=== PATIENT | female | born 1950 | race Caucasian/White ===

== ENCOUNTER 2022-12-04 08:45 | Outpatient (CLI) | payer MEDICARE, MEDICAID ==
[~2022-12-04] VITALS: Ht 165.1 cm; Wt 59.0 kg
[2022-12-04] VITALS (9 sets, daily range): BP systolic 160–181; BP diastolic 78–86
[~2022-12-04 08:45] MED LIST: ACET-2119 PO; ALPR-623 PO; AMLO2.5T2 PO; IBUP-24 PO; LISI20TA28 PO; PER10325T PO
[2022-12-04] MEDS ORDERED: aminophylline 250mg/10ml inj. IV PRN (09:25)
[2022-12-04] MEDS ORDERED: regadenoson 0.4mg/5ml syringe IV ONE (09:25)
[2022-12-04] MEDS ORDERED: atropine 0.1mg/ml 10ml syringe IV PRN (09:25)
[2022-12-04] MEDS ORDERED: metoprolol tartrate 1mg/ml inj IV PRN (09:25)
[2022-12-04] MEDS ORDERED: nitroGLYCERIN 0.4mg SUBLingual tab SL PRN (09:25)
[2022-12-04] MEDS ORDERED: normal saline 500ml IV soln 500 ML IV ONE (09:25)
== END 2022-12-04 23:59 | disposition home or self-care (01) ==
LOC: RAD 08:45
PROVIDERS: ATTEND Internal Medicine Cardiovascular Disease
DX: Z01.810 Encounter for preprocedural cardiovascular examination (principal); R00.2 Palpitations
CPT/HCPCS: 78452; 93017; A9500; J2785; J7040; J0280

== ENCOUNTER 2023-03-25 10:35 | Emergency (ER) | payer MEDICARE, MEDICAID ==
[~2023-03-25] VITALS: Ht 165.1 cm; Wt 61.4 kg
[2023-03-25 10:45] VITALS: BP 211/98
[2023-03-25 10:47] LABS: BASOPHILS # (AUTO) 0.1 X10'3 (0-0.2); BASOPHILS % (AUTO) 0.7 % (0-1); EOSINOPHILS # (AUTO) 0.4 X10'3 (0-0.9); EOSINOPHILS % (AUTO) 5.6 % (0-6); HEMATOCRIT 35.9 % (35.0-45.0); LYMPHOCYTES # (AUTO) 1.2 X10'3 (1.1-4.8); LYMPHOCYTES % (AUTO) 17.6 % (21-51); MEAN CORPUSCULAR HEMOGLOBIN 30.6 PG (27.0-31.0); MEAN CORPUSCULAR HGB CONC 33.5 g/dL (33.0-36.5); MEAN CORPUSCULAR VOLUME 91.3 FL (78-98); MEAN PLATELET VOLUME 6.3 FL (7.4-10.4); MONOCYTES # (AUTO) 0.6 X10'3 (0-0.9); MONOCYTES % (AUTO) 8.8 % (2-12); NEUTROPHILS # (AUTO) 4.7 X10'3 (1.8-7.7); NEUTROPHILS % (AUTO) 67.3 % (42-75); PLATELET COUNT 269 X10'3 (140-440); RED BLOOD COUNT 3.93 X10'6 (4.20-5.60); RED CELL DISTRIBUTION WIDTH 12.4 % (11.5-14.5)
[2023-03-25 11:14] LABS: ALANINE AMINOTRANSFERASE 27 U/L (12-78); ALBUMIN 4.1 G/DL (3.4-5.0); ALBUMIN/GLOBULIN RATIO 1.3 (1.1-1.5); ALKALINE PHOSPHATASE 61 IU/L (46-116); ANION GAP 7 (8-16); ASPARTATE AMINO TRANSFERASE 21 U/L (10-37); BILIRUBIN,TOTAL 0.4 MG/DL (0.1-1.0); BLOOD UREA NITROGEN 13 MG/DL (7-18); BUN/CREATININE RATIO 16.7 (10.0-20.0); CALCIUM 9.3 MG/DL (8.5-10.1); CHLORIDE 104 MMOL/L (99-107); CREATININE 0.78 MG/DL (0.40-0.90); GLUCOSE 95 MG/DL (70-104); POTASSIUM 3.9 MMOL/L (3.5-5.1); SODIUM 138 MMOL/L (135-145); TOTAL CARBON DIOXIDE 27.5 MMOL/L (24-32); TOTAL PROTEIN 7.3 G/DL (6.4-8.2); eGFR 73 ML/MIN
[2023-03-25] MEDS ORDERED: LIDOcaine 5% patch TP STA (13:41)
== END 2023-03-25 13:52 | disposition home or self-care (01) ==
LOC: ER 10:35
DX: M25.512 Pain in left shoulder (principal); R07.89 Other chest pain; I10 Essential (primary) hypertension; Z88.0 Allergy status to penicillin; Z88.5 Allergy status to narcotic agent; Z88.8 Allergy status to other drugs, medicaments and biological substances
CPT/HCPCS: 36415; 71045; 80053; 83880; 84484; 85025; 93005; 99285

== ENCOUNTER 2024-02-04 19:58 | Emergency (ER) | payer MEDICARE, MEDICAID ==
[~2024-02-04] VITALS: Ht 165.1 cm; Wt 59.1 kg
[2024-02-04] MEDS: sulfamethoxazole/trimethoprim DS (800/160mg) tablet PO ONE ×2 (08:00→22:28)
[2024-02-04 20:00] VITALS: BP 186/100; PULSE 72; RESP 18; TEMP 98.5; O2SAT 98
[2024-02-04] MEDS ORDERED: CefTRIAXone/D5W-Rocephin 1gm 50 ML IV ONE (21:05)
[2024-02-04 21:50] LABS: BILIRUBIN,URINE NEGATIVE (Neg); CLARITY,URINE SLIGHTLY CLOUDY (Clear); COLOR,URINE STRAW (Yellow); GLUCOSE, URINE NEGATIVE (Neg); KETONES,URINE NEGATIVE (Neg); LEUKOCYTE ESTERASE ,URINE LARGE (Neg); NITRITES, URINE NEGATIVE (Neg); OCCULT BLOOD,URINE LARGE (Neg); PROTEIN,URINE TRACE mg/dl (Neg); UROBILINOGEN,URINE 0.2 E.U/dL (0.2-1.0)
[2024-02-04] MEDS ORDERED: SULF1TAB45 PO (21:52)
[2024-02-04 21:53] LABS: UA COLLECTION TYPE CLN CATCH MIDSTREAM
[2024-02-04 21:59] LABS: BACTERIA,URINE 1+ /HPF (Neg); MUCUS STRANDS FEW /LPF (Neg); SQUAMOUS EPITHELIAL CELL,UR FEW /LPF (FEW); TRANSITIONAL EPI CELLS,URINE FEW /HPF; WBC CLUMPS,URINE MODERATE /HPF (NEGATIVE); WBC,URINE TNTC /HPF (0-4)
[2024-02-04] MEDS ORDERED: PHEN-716 PO (22:06)
[2024-02-05] MEDS ORDERED: sulfamethoxazole/trimethoprim DS (800/160mg) tablet PO SCH (08:00)
[2024-02-07] MEDS ORDERED: LEVO750T68 PO (16:29)
[2024-02-07] MEDS ORDERED: DET2LAC PO (16:29)
== END 2024-02-05 00:47 | disposition home or self-care (01) ==
LOC: ER 19:59
DX: N30.90 Cystitis, unspecified without hematuria (principal); N36.2 Urethral caruncle; N21.0 Calculus in bladder; I10 Essential (primary) hypertension; Z88.0 Allergy status to penicillin; Z88.5 Allergy status to narcotic agent; Z88.8 Allergy status to other drugs, medicaments and biological substances; Z79.1 Long term (current) use of non-steroidal anti-inflammatories (NSAID); Z79.899 Other long term (current) drug therapy
CPT/HCPCS: 81001; 87088; 99283

== ENCOUNTER 2024-02-09 11:38 | Emergency (ER) | payer MEDICARE, MEDICAID ==
[~2024-02-09] VITALS: Ht 165.1 cm; Wt 60.5 kg
[~2024-02-09 11:38] MED LIST changes: +DET2LAC PO; +LEVO750T68 PO; +PHEN-716 PO; +SULF1TAB45 PO
[2024-02-09 11:52] VITALS: TEMP 98.1
[2024-02-09 14:34] VITALS: BP 171/69; PULSE 68; RESP 16; O2SAT 98
== END 2024-02-09 14:39 | disposition home or self-care (01) ==
LOC: ER 11:39
DX: R07.89 Other chest pain (principal); T50.905A Adverse effect of unspecified drugs, medicaments and biological substances, initial encounter; I10 Essential (primary) hypertension; Z90.710 Acquired absence of both cervix and uterus; Z88.0 Allergy status to penicillin; Z88.8 Allergy status to other drugs, medicaments and biological substances; Z88.5 Allergy status to narcotic agent; Z79.899 Other long term (current) drug therapy; Z79.2 Long term (current) use of antibiotics; Y92.89 Other specified places as the place of occurrence of the external cause
CPT/HCPCS: 93005; 99283